=== PATIENT | female | born 2000 | race Two or more races ===

== ENCOUNTER 2025-08-11 18:23 | Emergency (ER) | payer OTHER ==
[~2025-08-11] VITALS: Ht 149.9 cm; Wt 39.9 kg
[2025-08-11] MEDS ORDERED: IBUPROFEN800 MG PO (19:44)
[2025-08-11] MEDS ORDERED: DEXAMETHASONE SODIUM PHOSPHATE 4 MG/ML VIAL IM ONE (19:45)
[2025-08-11] MEDS ORDERED: KETOROLAC TROMETHAMINE 60 MG VIAL IM ONE (19:45)
== END 2025-08-11 20:01 | disposition home or self-care (01) ==
LOC: ER 18:23
DX: K08.89 Other specified disorders of teeth and supporting structures (principal)